=== PATIENT | female | born 1970 | race African-American/Black ===

== ENCOUNTER 2016-09-26 07:27 | Inpatient (IN) | payer OTHER ==
[2016-09-22 14:22] VITALS: BMI 23.3
[2016-09-26 08:02] LABS: EOSINOPHIL 2.5 % (0-4.5); MCH 22.4 pg (25.7-33.7); MCHC 31.6 g/dl (32.0-36.0); MEAN PLT VOLUME 7.6 fl (7.5-11.1); NEUTROPHILS 54.5 % (42.8-82.8); PLATELET COUNT 230 K/MM3 (134-434); RDW 19.4 % (11.6-15.6); WHITE BLOOD COUNT 3.4 K/mm3 (4.0-10.0)
[2016-09-26 08:15] LABS: INR 1.05 (0.82-1.09); PROTHROMBIN TIME (PATIENT) 11.6 SEC (9.98-11.88)
[2016-09-26 08:17] LABS: ACTIVATED PTT 28.5 SECONDS (26.9-34.4)
--- NOTE | 2016-09-26 19:35 | HP ---
Admitting History and Physical - Primary Care Physician PCP: Tripp Mackey - Admission History of Present Illness: pt got admitted for observation had lung biopsy and got pneumothorax after - Past Medical History Cardiovascular: Yes: HTN Pulmonary: Yes: Pulmonary Embolus (b/l PEs, recurrent) ...LMP: 09/20/16 Heme/Onc: Yes: Anemia - Smoking History Smoking history: Never smoked Have you smoked in the past 12 months: No - Alcohol/Substance Use Hx Alcohol Use: No History of Substance Use: reports: None - Social History ADL: Independent Occupation: [employer] History of Recent Travel: No Home Medications - Allergies Allergies/Adverse Reactions: Allergies Allergy/AdvReac Type Severity Reaction Status Date / Time aspirin Allergy "HIVES" Verified 09/22/16 14:22 all cillins Allergy "HIVES" Uncoded 09/22/16 14:22 - Home Medications Home Medications: Ambulatory Orders Amlodipine Besylate [Norvasc -] 5 mg PO DAILY #30 tablet 06/07/15 Hctz 25Mg/Triamterene [Dyazide 25/37.5 -] 1 cap PO DAILY capsule 06/07/15 Warfarin Sodium [Coumadin] 10 mg PO DAILY 06/11/15 Enoxaparin Sodium [Lovenox] 80 mg SQ DAILY 09/22/16 Family Disease History - Family Disease History Family Disease History: Other: Father (healthy and living), Mother ( in an accident), Brother (health and living), Sister ( of PE, cva at age 37) Physical Examination Vital Signs: Vital Signs Temperature 98.7 F 09/26/16 18:47 Pulse Rate 69 09/26/16 18:47 Respiratory Rate 20 09/26/16 18:47 Blood Pressure 123/71 09/26/16 18:47 O2 Sat by Pulse Oximetry (%) 98 09/26/16 15:52 Constitutional: Yes: No Distress HENT: Yes: Atraumatic Neck: Yes: Supple Cardiovascular: Yes: Regular Rate and Rhythm Respiratory: Yes: CTA Bilaterally Gastrointestinal: Yes: Normal Bowel Sounds Extremities: Yes: WNL Neurological: Yes: Alert, Oriented Labs: CBC, BMP 09/26/16 07:45 Imaging - Results X-ray: Report Reviewed Problem List - Problems (1) HTN (hypertension) Assessment/Plan: on meds stable Code(s): I10 - ESSENTIAL (PRIMARY) HYPERTENSION (2) Pneumothorax Assessment/Plan: will observe fu xrays in am hold loenox and coumadin Code(s): J93.9 - PNEUMOTHORAX, UNSPECIFIED Assessment/Plan Laboratory Results - last 24 hr 09/26/16 09/26/16 09/26/16 07:45 07:45 07:45 WBC 3.4 L RBC 4.68 Hgb 10.5 L Hct 33.2 MCV 71.0 L MCHC 31.6 L RDW 19.4 H Plt Count 230 MPV 7.6 Neutrophils % 54.5 Lymphocytes % 31.3 Monocytes % 10.7 H Eosinophils % 2.5 Basophils % 1.0 INR 1.05 PTT (Actin FS) 28.5 Serum , Qual Negative Active Medications Generic Name Dose Route Start Last Admin Trade Name Freq PRN Reason Stop Dose Admin Acetaminophen 650 mg 09/26/16 19:27 Tylenol - PO Q6H PRN FEVER OR PAIN Amlodipine Besylate 5 mg 09/27/16 10:00 Norvasc - PO DAILY YUVAL
[2016-09-26] MEDS: ACETAMINOPHEN 325 MG TABLET (FP) PO PRN (20:40)
[2016-09-27 08:20] LABS: BASOPHIL 0.6 % (0-2.0); EOSINOPHIL 2.5 % (0-4.5); MCH 22.5 pg (25.7-33.7); MCHC 31.9 g/dl (32.0-36.0); MEAN CELL VOLUME 70.7 fl (80-96); MEAN PLT VOLUME 7.5 fl (7.5-11.1); NEUTROPHILS 58.6 % (42.8-82.8); PLATELET COUNT 240 K/MM3 (134-434); RDW 19.5 % (11.6-15.6); WHITE BLOOD COUNT 3.4 K/mm3 (4.0-10.0)
[2016-09-27 08:49] LABS: ALBUMIN 3.4 g/dl (3.4-5.0); ANION GAP 9 (8-16); BILIRUBIN,TOTAL 0.6 mg/dL (0.2-1.0); CALCIUM 8.4 mg/dL (8.5-10.1); CO2 24 mmol/L (21-32); CREATININE 0.7 mg/dL (0.55-1.02); GLUCOSE,RANDOM 80 mg/dL (74-106); SGOT/AST 16 U/L (15-37); SGPT/ALT 31 U/L (12-78); TOT PROT 7.1 g/dl (6.4-8.2)
[2016-09-27 08:51] LABS: ALK PHOS 70 U/L (45-117)
[2016-09-27 09:18] LABS: ANISOCYTOSIS 1+; HYPOCHROMIA 2+; MICROCYTOSIS 1+; TARGET CELLS 2+; TEAR DROP CELLS RARE
[2016-09-27] MEDS: ACETAMINOPHEN 325 MG TABLET (FP) PO PRN ×2 (09:38→20:44)
[2016-09-27] MEDS: amLODIPine BESYLATE 5 MG TABLET (FP) PO SCH (09:42)
--- NOTE | 2016-09-27 12:53 | PN ---
Progress Note (short form) - Note Progress Note: PULMONARY CONSULTATION DICTATED 09/27/16 IMP TRAUMATIC R PTX RUL NODULE H/O RECURRENT PE/DVT HTN PLAN F/U CHEST X-RAY CHECK BX ANTICOAGULATION DR WELCH Problem List - Problems (1) Pneumothorax Code(s): J93.9 - PNEUMOTHORAX, UNSPECIFIED (2) DVT (deep venous thrombosis) Code(s): I82.409 - ACUTE EMBOLISM AND THOMBOS UNSP DEEP VN UNSP LOWER EXTREMITY Qualifiers: Laterality: left (3) Fibroids Code(s): D25.9 - LEIOMYOMA OF UTERUS, UNSPECIFIED (4) HTN (hypertension) Code(s): I10 - ESSENTIAL (PRIMARY) HYPERTENSION (5) Pulmonary embolism Code(s): I26.99 - OTHER PULMONARY EMBOLISM WITHOUT ACUTE COR PULMONALE (6) Lung nodule, solitary Code(s): R91.1 - SOLITARY PULMONARY NODULE
--- NOTE | 2016-09-27 14:24 | CONS ---
DATE OF CONSULTATION: 09/27/2016 REFERRING PHYSICIAN: Amelia Mackey MD The patient is a 46-year-old black female known to me from previous hospitalization in 2015 with a history of pulmonary embolism x2, DVT, hypertension, currently maintained on Coumadin, recently noted to have a right upper lobe nodule. The patient apparently had a PET scan which she states did not show significant SUV uptake. Apparently, she went for a followup CAT scan on August 15, 2016, which revealed no change in right upper lobe nodule. The patient underwent a CT needle-aspiration biopsy on September 26. The patient tolerated the procedure well. A postop chest x-ray revealed a small right upper lobe pneumothorax. She was admitted for further observation. She denies any shortness of breath. Denies hemoptysis. Does have some chest pain secondary to the procedure. Denies any chronic cough, wheezing. Denies any history of tobacco use. There is no history of occupational exposure to chemicals or fumes. PAST MEDICAL HISTORY: Again includes hypertension, pulmonary embolism x2, DVT. REVIEW OF SYSTEMS: No orthopnea. No PND. No cough. No hemoptysis. Positive chest pain secondary to recent biopsy. No fevers. No chills. No weight loss. No night sweats. CURRENT MEDICATIONS: Include Norvasc and Tylenol. PHYSICAL EXAMINATION: General: The patient is a well-developed, well-nourished female, awake, alert, in no acute distress. Vital signs: She is afebrile; blood pressure is 136/73; respiratory rate is 18 ; O2 saturation is 99% on room air. HEENT: Exam is normocephalic, atraumatic. Neck: Supple. Heart: Regular S1 and S2. Chest: Clear. Abdomen: Soft. Bowel sounds positive. Extremities: No sign of edema. Chest x-ray from early this morning reveals a small right upper lobe right pneumothorax of 26 mm. IMPRESSION: 1. Right upper lobe nodule, etiology to be determined. 2. Right upper lobe traumatic pneumothorax. 3. Hypertension. PLAN: Follow up the chest x-ray. Check results of pathology. Further recommendations pending results of chest x-ray, and biopsy. SAM WELCH M.D. [id number] MTDD
--- NOTE | 2016-09-27 19:38 | PN ---
Progress Note, Physician - Current Medication List Current Medications: Active Medications Acetaminophen (Tylenol -) 650 mg PO Q6H PRN PRN Reason: FEVER OR PAIN Last Admin: 09/27/16 09:38 Dose: 650 mg Amlodipine Besylate (Norvasc -) 5 mg PO DAILY YUVAL Last Admin: 09/27/16 09:42 Dose: Not Given - Objective Vital Signs: Vital Signs Temperature 98.2 F 09/27/16 14:00 Pulse Rate 73 09/27/16 14:00 Respiratory Rate 20 09/27/16 14:00 Blood Pressure 126/74 09/27/16 14:00 O2 Sat by Pulse Oximetry (%) 99 09/27/16 05:27 Constitutional: Yes: No Distress HENT: Yes: Atraumatic Neck: Yes: Supple Cardiovascular: Yes: Regular Rate and Rhythm Respiratory: Yes: CTA Bilaterally Gastrointestinal: Yes: Normal Bowel Sounds Extremities: Yes: WNL Neurological: Yes: Alert, Oriented Labs: CBC, BMP 09/27/16 07:00 09/27/16 07:00 INR, PTT INR 1.05 (0.82-1.09) 09/26/16 07:45 Problem List - Problems (1) HTN (hypertension) Code(s): I10 - ESSENTIAL (PRIMARY) HYPERTENSION (2) Pneumothorax Code(s): J93.9 - PNEUMOTHORAX, UNSPECIFIED Assessment/Plan 1.PNEUMOTHORAX POST BIOPSY OF PULMONARY NODULE CXR IMPROVED WILL REPEAT IN AM CLINICALLY STABLE NEED TO KNOW FROM HEME WHEN TO START LOVENOX PT HAS A H/O OF PE
--- NOTE | 2016-09-27 20:25 | PN ---
Progress Note (short form) - Note Progress Note: Patient seen and examined Patient well known to our service. Comes in s/p lung biopsy with pneu,othorax. HAd RUL lung nodule mildly PET+ Denies any complaints. No SOB PMH fibroids menorrhagia worsened on NOACs h/o DVT/PE provoked by fibroids ??, s/p ivc filter, on coumadin Last Vital Signs Temp Pulse Resp BP Pulse Ox 98.1 F 73 18 122/71 97 09/27/16 22:00 09/27/16 22:00 09/27/16 22:00 09/27/16 22:00 09/27/16 22:00 Oropharynx: No thrush, No mucositis Cor: RSR, No murmurs, No gallops Lungs: Clear to P&A Abd: Soft, Normal bowel sounds, No organomegaly Ext:No significant edema Skin: No rashes, Integument intact Abnormal Lab Results 09/27/16 09/27/16 07:00 07:00 WBC 3.4 L MCV 70.7 L MCHC 31.9 L RDW 19.5 H Monocytes % 10.3 H Chloride 111 H Calcium 8.4 L Current Medications Acetaminophen (Tylenol -) 650 mg PO Q6H PRN PRN Reason: FEVER OR PAIN Last Admin: 09/27/16 20:44 Dose: 650 mg Amlodipine Besylate (Norvasc -) 5 mg PO DAILY YUVAL Last Admin: 09/27/16 09:42 Dose: Not Given A/P 46 y/opatient with h/o DVT/PE /fibroid uterus, had menorrhagia oion NOACs, s/p ivc filter. Has beenon [facility] coumadin as patient continues to have fibroids , h/o Uterine artery emboliztion on past.Will repeat p[elvic U?S Thrombophilia w/u neg. except protwein C/S as patientis on coumadin Lung nodule -- RUL --being followed since 04/21. PET positive mildly Hence had lung bx Pneumothorax s/p lung biopsy CXR --very little change To resume lovenox when cleared by IR discussed with Dr. Reese and primary
--- NOTE | 2016-09-28 07:52 | PATH ---
Surgical Pathology Report Patient Name: CHULA HORTON [facility]. Rec. #: [id number] /Age/Gender: 1970 (Age: 46) / F Account: [id number] Location: [address] [place] [address]/[facility] Taken: 09/26/2016 Received: 09/26/2016 Reported: 09/28/2016 Physicians: Blane Smith M.D. Smitha Mellacheruvu, M.D. Specimen(s) Received LUNG BIOPSY Clinical History 46-year-old female with right lower lung lesion Rule out primary lung neoplasm versus inflammatory process Patient had history of PE and ?? wedge infiltrate Final Diagnosis LUNG, RIGHT LOWER LOBE, GUIDED CORE BIOPSY: BENIGN BRONCHOPULMONARY TISSUE WITH ACTIVE AND CHRONIC INFLAMMATION AND MILD NON-SPECIFIC FIBROSIS. NO MALIGNANCY IDENTIFIED AND EXAMINED MATERIAL. NO GRANULOMAS IDENTIFIED. Comment: Special stains for acid-fast and fungal organisms are pending; results will be reported in an addendum. The case was discussed with Dr. Reese on 09/27/16. Electronically Signed Avel Cardoso M.D. Addendum Reported: 09/28/2016 Addendum Diagnosis No acid fast bacilli are identified with AFB stain. No fungal organisms are identified with GMS stain. Avel Cardoso M.D. Gross Description Received in formalin, labeled "right lung biopsy" is a 0.5 x 0.3 x 0.1 cm aggregate of wade soft tissue fragments. The formalin is filtered and the specimen is entirely submitted in one cassette. /09/26/201609/26/2016
[2016-09-28] MEDS: amLODIPine BESYLATE 5 MG TABLET (FP) PO SCH (09:38)
--- NOTE | 2016-09-28 12:15 | PN ---
Progress Note (short form) - Note Progress Note: PULMONARY Denies shortness of breath or chest pain. CXR this AM showing slight improvement in pneumothorax. Pathology with benign tissue. Last Vital Signs Temp Pulse Resp BP Pulse Ox 98.6 F 67 20 114/65 98 09/28/16 09:33 09/28/16 09:33 09/28/16 09:33 09/28/16 09:33 09/28/16 05:09 Gen: NAD at rest Heart: RRR Lung: decreased breath sounds on right Abd: soft, nontender Ext: no edema CBC, BMP 09/27/16 07:00 09/27/16 07:00 Active Medications Acetaminophen (Tylenol -) 650 mg PO Q6H PRN PRN Reason: FEVER OR PAIN Last Admin: 09/27/16 20:44 Dose: 650 mg Amlodipine Besylate (Norvasc -) 5 mg PO DAILY YUVAL Last Admin: 09/28/16 09:38 Dose: 5 mg A/P Lung Nodule s/p Needle biopsy with resultant right pneumothorax h/o PE/DVT Fibroids - can restart anticoagulation and be discharged home from pulmonary standpoint as pt reliable - pt given Rx for CXR tomorrow and next week - instructed that if she develops any chest pain or shortness of breath, she must come back to ER - outpt f/u of lung nodule
--- NOTE | 2016-09-28 13:43 | PN ---
Progress Note, Physician - Current Medication List Current Medications: Active Medications Acetaminophen (Tylenol -) 650 mg PO Q6H PRN PRN Reason: FEVER OR PAIN Last Admin: 09/27/16 20:44 Dose: 650 mg Amlodipine Besylate (Norvasc -) 5 mg PO DAILY YUVAL Last Admin: 09/28/16 09:38 Dose: 5 mg - Objective Vital Signs: Vital Signs Temperature 98.6 F 09/28/16 09:33 Pulse Rate 67 09/28/16 09:33 Respiratory Rate 20 09/28/16 09:33 Blood Pressure 114/65 09/28/16 09:33 O2 Sat by Pulse Oximetry (%) 98 09/28/16 05:09 Labs: CBC, BMP 09/27/16 07:00 09/27/16 07:00 INR, PTT INR 1.05 (0.82-1.09) 09/26/16 07:45 Problem List - Problems (1) HTN (hypertension) Code(s): I10 - ESSENTIAL (PRIMARY) HYPERTENSION (2) Pneumothorax Code(s): J93.9 - PNEUMOTHORAX, UNSPECIFIED Assessment/Plan 1.PNEUMOTHORAX POST BIOPSY OF PULMONARY NODULE CXR IMPROVED WILL REPEAT IN AM CLINICALLY STABLE NEED TO KNOW FROM HEME WHEN TO START LOVENOX PT HAS A H/O OF PE need to know the dose of lovenox to start
[2016-09-28] MEDS ORDERED: ENOXAPARIN NA (PORCINE) 60 MG/0.6 ML DISP.SYRIN SQ ONE (16:30)
--- NOTE | 2016-09-28 17:34 | PN ---
Progress Note (short form) - Note Progress Note: Patient seen and examined Denies any complaints. No SOB Last Vital Signs Temp Pulse Resp BP Pulse Ox 98.1 F 73 18 122/71 97 09/27/16 22:00 09/27/16 22:00 09/27/16 22:00 09/27/16 22:00 09/27/16 22:00 HEENT: nl Oropharynx: No thrush, No mucositis Cor: RSR, No murmurs, No gallops Lungs: decreased breath sounds rt. lung Abd: Soft, Normal bowel sounds, No organomegaly Ext:No significant edema Abnormal Lab Results 09/27/16 09/27/16 07:00 07:00 WBC 3.4 L MCV 70.7 L MCHC 31.9 L RDW 19.5 H Monocytes % 10.3 H Chloride 111 H Calcium 8.4 L Current Medications Acetaminophen (Tylenol -) 650 mg PO Q6H PRN PRN Reason: FEVER OR PAIN Last Admin: 09/27/16 20:44 Dose: 650 mg Amlodipine Besylate (Norvasc -) 5 mg PO DAILY [facility] Last Admin: 09/27/16 09:42 Dose: Not Given A/P 46 y/opatient with h/o DVT/PE /fibroid uterus Pneumothorax s/p lung biopsy CXR --very little change To resume lovenox bridge to coumadin per PMD pathology negative discussed with Dr. salinas
--- NOTE | 2016-09-28 17:41 | DS ---
Physical Examination Vital Signs: Vital Signs Temperature 98.2 F 09/28/16 14:20 Pulse Rate 72 09/28/16 14:20 Respiratory Rate 20 09/28/16 14:20 Blood Pressure 124/60 09/28/16 14:20 O2 Sat by Pulse Oximetry (%) 98 09/28/16 05:09 Constitutional: Yes: No Distress HENT: Yes: Atraumatic Neck: Yes: Supple Cardiovascular: Yes: Regular Rate and Rhythm Respiratory: Yes: CTA Bilaterally Gastrointestinal: Yes: Normal Bowel Sounds Extremities: Yes: WNL Neurological: Yes: Alert, Oriented Labs: CBC, BMP 09/27/16 07:00 09/27/16 07:00 Discharge Summary Reason For Visit: PNEUMOTHORAX AFTER BIOPSY Current Active Problems Lung nodule, solitary (Acute) Pneumothorax (Acute) - Instructions Diet, Activity, Other Instructions: IF YOU DEVELOP SIGNIFICANT HEMOPTYSIS WHICH IS COUGHING UP BLOOD, SHORTNESS OF BREATH, CHEST PAIN, OR PERSISTENT COUGHING - GO TO EMERGENCY DEPARTMENT. FOLLOW UP WITH DR BAUM FOR BIOPSY RESULTS. see your pmd sunday for inr check start your coumadin today along with lovenox follow up cxr x2 Referrals: Tripp Mackey MD [Staff Physician] - - Home Medications Comprehensive Discharge Medication List: Ambulatory Orders Amlodipine Besylate [Norvasc -] 5 mg PO DAILY #30 tablet 06/07/15 Warfarin Sodium [Coumadin] 10 mg PO DAILY 06/11/15 Enoxaparin Sodium [Lovenox] 80 mg SQ DAILY 09/22/16 Enoxaparin Sodium [Lovenox] 70 mg SQ DAILY #7 syringe 09/28/16 dc home on coumadin and lovenox fu ia next week sunday not clear to go back to work...d/w patient
[2016-09-28 18:32] VITALS: BP 124/75; PULSE 74; TEMP 98.4
== END 2016-09-28 18:50 | disposition home or self-care (01) | DRG 201 ==
LOC: JRADIR 07:27 → J5S 17:29 → INTOOBSV 17:29 → OBSVTOIN 17:29 → J5S 18:00
PROVIDERS: ADMIT Internal Medicine; ATTEND Internal Medicine
PROC: 0BBF3ZX Excision of Right Lower Lung Lobe, Percutaneous Approach, Diagnostic (ICD-10-PCS; principal; 2016-09-26)
DX: J95.811 Postprocedural pneumothorax (principal); Y84.8 Other medical procedures as the cause of abnormal reaction of the patient, or of later complication, without mention of misadventure at the time of the procedure; Z86.718 Personal history of other venous thrombosis and embolism; R91.1 Solitary pulmonary nodule; Z86.711 Personal history of pulmonary embolism; D25.9 Leiomyoma of uterus, unspecified; I10 Essential (primary) hypertension; Z79.01 Long term (current) use of anticoagulants
CPT/HCPCS: 32405; 36415; 71010-TC; 71020-TC; 77012-TC; 80053; 84703; 85025; 85610; 85730; 88305-TC

== ENCOUNTER 2016-10-02 09:36 | Inpatient (IN) | payer OTHER ==
[2016-10-02 11:40] LABS: INR 1.43 (0.82-1.09); PROTHROMBIN TIME (PATIENT) 15.8 SEC (9.98-11.88)
[2016-10-02 12:40] VITALS: BMI 23.3
[2016-10-02] MEDS ORDERED: HYDROmorphone HCL CARPU-JECT 2 MG/1 ML DISP.SYRIN ONE (15:37)
[2016-10-02] MEDS: HYDROmorphone HCL CARPU-JECT 1 MG/1 ML DISP.SYRIN IVPB PRN ×2 (15:40→15:45)
[2016-10-02] MEDS ORDERED: ONDANSETRON 4 MG/2 ML VIAL ONE (15:47)
[2016-10-02] MEDS ORDERED: PROMETHAZINE HCL 25 MG/1 ML VIAL ONE (17:02)
[2016-10-02] MEDS ORDERED: ONDANSETRON 4 MG/2 ML VIAL IVPB PRN ×2 (17:22→21:36)
[2016-10-02] MEDS ORDERED: PROMETHAZINE HCL 25 MG/1 ML VIAL IVPB ONE (17:30)
[2016-10-02] MEDS: SODIUM CHLORIDE 1,000 ML IV SCH ×2 (18:00→18:41)
[2016-10-02] MEDS ORDERED: HYDROmorphone HCL CARPU-JECT 1 MG/1 ML DISP.SYRIN IVPB ONE (19:45)
--- NOTE | 2016-10-02 20:30 | HP ---
Admitting History and Physical - Primary Care Physician PCP: Tripp Mackey - Admission History of Present Illness: admitted for pneumothorax...fu cxr same got pig tail catheter in chest - Past Medical History Cardiovascular: Yes: HTN Pulmonary: Yes: Pulmonary Embolus (b/l PEs, recurrent) ...LMP: 09/20/16 Heme/Onc: Yes: Anemia - Smoking History Smoking history: Never smoked Have you smoked in the past 12 months: No - Alcohol/Substance Use Hx Alcohol Use: No History of Substance Use: reports: None - Social History ADL: Independent Occupation: [employer] History of Recent Travel: No Home Medications - Allergies Allergies/Adverse Reactions: Allergies Allergy/AdvReac Type Severity Reaction Status Date / Time aspirin Allergy "HIVES" Verified 10/02/16 12:28 all cillins Allergy "HIVES" Uncoded 10/02/16 12:28 - Home Medications Home Medications: Ambulatory Orders Amlodipine Besylate [Norvasc -] 5 mg PO DAILY #30 tablet 06/07/15 Warfarin Sodium [Coumadin] 10 mg PO DAILY 06/11/15 Enoxaparin Sodium [Lovenox] 80 mg SQ DAILY 09/22/16 Enoxaparin Sodium [Lovenox] 70 mg SQ DAILY #7 syringe 09/28/16 Triamterene/Hydrochlorothiazid [Triamterene-Hctz 37.5-25 mg Cp] 1 each PO DAILY 10/02/16 Family Disease History - Family Disease History Family Disease History: Other: Father (healthy and living), Mother ( in an accident), Brother (health and living), Sister ( of PE, cva at age 37) Physical Examination Vital Signs: Vital Signs Temperature 98.0 F 10/02/16 18:00 Pulse Rate 61 10/02/16 18:00 Respiratory Rate 13 10/02/16 18:00 Blood Pressure 115/69 10/02/16 18:00 O2 Sat by Pulse Oximetry (%) 100 10/02/16 18:00 Constitutional: Yes: No Distress HENT: Yes: Atraumatic Neck: Yes: Supple Cardiovascular: Yes: Regular Rate and Rhythm Respiratory: Yes: Rhonchi Gastrointestinal: Yes: Normal Bowel Sounds Extremities: Yes: WNL Problem List - Problems (1) Fibroids Code(s): D25.9 - LEIOMYOMA OF UTERUS, UNSPECIFIED (2) HTN (hypertension) Assessment/Plan: stable on meds Code(s): I10 - ESSENTIAL (PRIMARY) HYPERTENSION (3) Lung nodule, solitary Assessment/Plan: s/p biopsy... Code(s): R91.1 - SOLITARY PULMONARY NODULE (4) Pneumothorax Assessment/Plan: ct in place will fu xray Code(s): J93.9 - PNEUMOTHORAX, UNSPECIFIED (5) Pulmonary embolism Assessment/Plan: start lovenox from tomorrow Code(s): I26.99 - OTHER PULMONARY EMBOLISM WITHOUT ACUTE COR PULMONALE Assessment/Plan Laboratory Tests 10/02/16 11:10 INR 1.43 H D
[2016-10-02] MEDS ORDERED: HYDROmorphone HCL CARPU-JECT 1 MG/1 ML DISP.SYRIN IVPB PRN (21:36)
[2016-10-03 07:52] LABS: BASOPHIL 0.9 % (0-2.0); EOSINOPHIL 1.1 % (0-4.5); MCH 22.5 pg (25.7-33.7); MCHC 32.2 g/dl (32.0-36.0); MEAN CELL VOLUME 69.9 fl (80-96); MEAN PLT VOLUME 7.8 fl (7.5-11.1); PLATELET COUNT 211 K/MM3 (134-434); RDW 19.4 % (11.6-15.6); WHITE BLOOD COUNT 4.1 K/mm3 (4.0-10.0)
[2016-10-03 08:17] LABS: INR 1.92 (0.82-1.09); PROTHROMBIN TIME (PATIENT) 21.4 SEC (9.98-11.88)
[2016-10-03 09:07] LABS: ALBUMIN 3.3 g/dl (3.4-5.0); ANION GAP 11 (8-16); CALCIUM 8.4 mg/dL (8.5-10.1); CO2 21 mmol/L (21-32); GLUCOSE,RANDOM 80 mg/dL (74-106)
[2016-10-03 09:11] LABS: ALK PHOS 63 U/L (45-117); BILIRUBIN,TOTAL 0.4 mg/dL (0.2-1.0); CREATININE 0.7 mg/dL (0.55-1.02); SGOT/AST 17 U/L (15-37); SGPT/ALT 24 U/L (12-78); TOT PROT 6.8 g/dl (6.4-8.2)
[2016-10-03] MEDS: ENOXAPARIN NA (PORCINE) 80 MG/0.8 ML DISP.SYRIN SQ SCH (09:12)
[2016-10-03] MEDS: amLODIPine BESYLATE 5 MG TABLET (FP) PO SCH (09:13)
--- NOTE | 2016-10-03 14:41 | CON.PULM ---
Consult Consult Specialty:: PULMONARY Reason for Consultation:: PTX - History of Present Illness Chief Complaint: SOB/PTX History of Present Illness: 46 B FEMALE H/O VTE/PE TWICE NOW WITH IVC FILTER AND ON WARFARIN HAD R LUNG LESION S/P TTNA WITH SUBSEQUENT PTX WHICH INITIALLY DID NOT REQUIRE A CT. PT NOTED INCREASE IN SOB AND REPEAT CXR YESTERDAY REVEALED PTX REQUIRING PIG TAIL CATHETER. NOW CT IN PLACE AND PTX IS RESOLVED - History Source History Provided By: Patient, Medical Record Limitations to Obtaining History: No Limitations - Past Medical History NUMEROLOGIST: No: Alzheimer's Cardio/Vascular: Yes: HTN Pulmonary: Yes: Pulmonary Embolus (b/l PEs, recurrent) Gastrointestinal: No: Ascites Hepatobiliary: No: Cirrhosis Renal/: No: Renal Failure ...LMP: 09/20/16 Heme/Onc: Yes: Other (RIGHT LUNG LESION W EQUIVOCAL RESULTS ON PET) Infectious Disease: No: AIDS Psych: No: Addictions Musculoskeletal: No: Bursitis Rheumatology: No: Fibromyalgia Additional Medical History: Prior PE in 2008 following abdominal myomectomy. - Alcohol/Substance Use Hx Alcohol Use: No History of Substance Use: reports: None - Smoking History Smoking history: Never smoked Have you smoked in the past 12 months: No - Social History ADL: Independent Occupation: HAND INSPECTOR History of Recent Travel: No Home Medications - Allergies Allergies/Adverse Reactions: Allergies Allergy/AdvReac Type Severity Reaction Status Date / Time aspirin Allergy "HIVES" Verified 10/02/16 12:28 all cillins Allergy "HIVES" Uncoded 10/02/16 12:28 - Home Medications Home Medications: Ambulatory Orders Amlodipine Besylate [Norvasc -] 5 mg PO DAILY #30 tablet 06/07/15 Warfarin Sodium [Coumadin] 10 mg PO DAILY 06/11/15 Enoxaparin Sodium [Lovenox] 80 mg SQ DAILY 09/22/16 Enoxaparin Sodium [Lovenox] 70 mg SQ DAILY #7 syringe 09/28/16 Triamterene/Hydrochlorothiazid [Triamterene-Hctz 37.5-25 mg Cp] 1 each PO DAILY 10/02/16 Family Disease History - Family Disease History Family Disease History: Other: Father (healthy and living), Mother ( in an accident), Brother (health and living), Sister ( of PE, cva at age 37) Review of Systems - Review of Systems Constitutional: denies: Fever Eyes: denies: Blurred Vision HENT: denies: Difficult Swallowing Neck: denies: Decreased ROM Cardiovascular: denies: Chest Pain Respiratory: reports: SOB on Exertion. denies: Cough, SOB Gastrointestinal: denies: Abdominal Pain Genitourinary: denies: Burning Breasts: reports: No Symptoms Reported Physical Exam Vital Sings: Vital Signs Temperature 99.5 F 10/03/16 09:00 Pulse Rate 74 10/03/16 09:00 Respiratory Rate 20 10/03/16 09:00 Blood Pressure 130/72 10/03/16 09:00 O2 Sat by Pulse Oximetry (%) 96 10/03/16 09:00 Constitutional: Yes: Calm Eyes: Yes: EOM Intact HENT: Yes: Normocephalic Neck: Yes: Trachea Midline Cardiovascular: Yes: Regular Rate and Rhythm Respiratory: Yes: CTA Bilaterally Gastrointestinal: Yes: Abdomen, Obese Extremities: Yes: WNL Edema: No Neurological: Yes: WNL Labs: CBC, BMP 10/03/16 06:45 10/03/16 06:45 Imaging - Results Chest X-ray: Image Reviewed Cat Scan: Image Reviewed Problem List - Problems (1) HTN (hypertension) Code(s): I10 - ESSENTIAL (PRIMARY) HYPERTENSION (2) Lung nodule, solitary Code(s): R91.1 - SOLITARY PULMONARY NODULE (3) Pneumothorax after biopsy Code(s): J95.811 - POSTPROCEDURAL PNEUMOTHORAX Assessment/Plan RESOLVED PTX S/P PIGTAIL CATHETER PLAVEMENT CHECK CXR AM HOPE TO HAVE TUBE REMOVED MELLISA WATTERS MD
--- NOTE | 2016-10-03 17:10 | PN ---
Progress Note, Physician - Current Medication List Current Medications: Active Medications Amlodipine Besylate (Norvasc -) 5 mg PO DAILY REPLACED BY [facility] Last Admin: 10/03/16 09:13 Dose: 5 mg Enoxaparin Sodium (Lovenox -) 70 mg SQ DAILY REPLACED BY [facility] Last Admin: 10/03/16 09:12 Dose: 70 mg Hydromorphone HCl (Dilaudid Injection -) 1 mg IVPB Q3H PRN PRN Reason: PAIN Last Admin: 10/03/16 08:21 Dose: 1 mg Sodium Chloride (Normal Saline -) 1,000 mls @ 100 mls/hr IV ASDIR REPLACED BY [facility] Last Admin: 10/02/16 18:41 Dose: 100 mls/hr Ondansetron HCl (Zofran Injection) 4 mg IVPB Q4H PRN PRN Reason: NAUSEA AND/OR VOMITING - Objective Vital Signs: Vital Signs Temperature 98.6 F 10/03/16 15:57 Pulse Rate 81 10/03/16 15:57 Respiratory Rate 18 10/03/16 15:57 Blood Pressure 135/81 10/03/16 15:57 O2 Sat by Pulse Oximetry (%) 96 10/03/16 09:00 Constitutional: Yes: No Distress HENT: Yes: Atraumatic Neck: Yes: Supple Cardiovascular: Yes: Regular Rate and Rhythm Respiratory: Yes: CTA Bilaterally Gastrointestinal: Yes: Normal Bowel Sounds Extremities: Yes: WNL Neurological: Yes: Alert, Oriented Labs: CBC, BMP 10/03/16 06:45 10/03/16 06:45 INR, PTT INR 1.92 (0.82-1.09) H D 10/03/16 06:45 Problem List - Problems (1) Fibroids Code(s): D25.9 - LEIOMYOMA OF UTERUS, UNSPECIFIED (2) HTN (hypertension) Code(s): I10 - ESSENTIAL (PRIMARY) HYPERTENSION (3) Lung nodule, solitary Code(s): R91.1 - SOLITARY PULMONARY NODULE (4) Pneumothorax Code(s): J93.9 - PNEUMOTHORAX, UNSPECIFIED (5) Pulmonary embolism Code(s): I26.99 - OTHER PULMONARY EMBOLISM WITHOUT ACUTE COR PULMONALE Assessment/Plan Laboratory Tests 10/02/16 11:10 INR 1.43 H D Laboratory Tests 10/02/16 10/03/16 10/03/16 11:10 06:45 06:45 WBC 4.1 RBC 4.99 Hgb 11.2 Hct 34.8 MCV 69.9 L MCHC 32.2 RDW 19.4 H Plt Count 211 MPV 7.8 Neutrophils % 62.0 Lymphocytes % 24.4 Monocytes % 11.6 H Eosinophils % 1.1 Basophils % 0.9 INR 1.43 H D 1.92 H D Sodium Potassium Chloride Carbon Dioxide Anion Gap BUN Creatinine Creat Clearance w eGFR Random Glucose Calcium Total Bilirubin AST ALT Alkaline Phosphatase Total Protein Albumin 10/03/16 06:45 WBC RBC Hgb Hct MCV MCHC RDW Plt Count MPV Neutrophils % Lymphocytes % Monocytes % Eosinophils % Basophils % INR Sodium 143 Potassium 4.4 Chloride 111 H Carbon Dioxide 21 Anion Gap 11 BUN 11 D Creatinine 0.7 Creat Clearance w eGFR > 60 Random Glucose 80 Calcium 8.4 L Total Bilirubin 0.4 D AST 17 ALT 24 D Alkaline Phosphatase 63 Total Protein 6.8 Albumin 3.3 L 1.pig tail catheter removed cxr no pneumo if clinically stable dc in am repeat cxr in am
[2016-10-04] MEDS: amLODIPine BESYLATE 5 MG TABLET (FP) PO SCH (09:36)
[2016-10-04] MEDS: ENOXAPARIN NA (PORCINE) 80 MG/0.8 ML DISP.SYRIN SQ SCH (09:36)
--- NOTE | 2016-10-04 12:39 | PN ---
Progress Note (short form) - Note Progress Note: PULMONARY FEELS FINE NOT SOB 99% SPO2 ON R/A VSS ANICTERIC CLEAR LUNG LEONARD S1S2 BS+ NO EDEMA LABS/MEDS/NOTES/IMAGING REVIEWED RESOLVED IATROGENIC PTX NOW S/P PIGTAIL REMOVAL AGREE WITH CONTINUING OBSERVATION AN OUTPATIENT. Omer WATTERS MD Problem List - Problems (1) HTN (hypertension) Code(s): I10 - ESSENTIAL (PRIMARY) HYPERTENSION (2) Lung nodule, solitary Code(s): R91.1 - SOLITARY PULMONARY NODULE (3) Pneumothorax after biopsy Code(s): J95.811 - POSTPROCEDURAL PNEUMOTHORAX
[2016-10-04 15:09] VITALS: BP 136/90; PULSE 97; TEMP 98.8
[2016-10-04] MEDS: SODIUM CHLORIDE 1,000 ML IV SCH (17:36)
--- NOTE | 2016-10-04 18:19 | DS ---
Physical Examination Vital Signs: Vital Signs Temperature 98.8 F 10/04/16 15:08 Pulse Rate 97 H 10/04/16 15:08 Respiratory Rate 17 10/04/16 15:08 Blood Pressure 136/90 10/04/16 15:08 O2 Sat by Pulse Oximetry (%) 99 10/04/16 09:00 Constitutional: Yes: No Distress HENT: Yes: Atraumatic Neck: Yes: Supple Cardiovascular: Yes: Regular Rate and Rhythm Respiratory: Yes: CTA Bilaterally Gastrointestinal: Yes: Normal Bowel Sounds Extremities: Yes: WNL Neurological: Yes: Alert, Oriented Labs: CBC, BMP 10/03/16 06:45 10/03/16 06:45 Discharge Summary Reason For Visit: PNEUMOTHORAX Current Active Problems Pneumothorax after biopsy (Acute) - Home Medications Comprehensive Discharge Medication List: Ambulatory Orders Amlodipine Besylate [Norvasc -] 5 mg PO DAILY #30 tablet 06/07/15 Warfarin Sodium [Coumadin] 10 mg PO DAILY 06/11/15 Enoxaparin Sodium [Lovenox] 70 mg SQ DAILY #7 syringe 09/28/16 Triamterene/Hydrochlorothiazid [Triamterene-Hctz 37.5-25 mg Cp] 1 each PO DAILY 10/02/16 dc home fu pmd 2-3 days
== END 2016-10-04 18:37 | disposition home or self-care (01) | DRG 201 ==
LOC: JASUSAT 09:36 → J8W 09:36 → JRAD 09:36 → J8W 18:29 → JASUSAT 10-03 19:07
PROVIDERS: ADMIT Internal Medicine; ATTEND Internal Medicine
PROC: 0W9930Z Drainage of Right Pleural Cavity with Drainage Device, Percutaneous Approach (ICD-10-PCS; principal; 2016-10-02)
PROC: 0BPQX0Z Removal of Drainage Device from Pleura, External Approach (ICD-10-PCS; 2016-10-03)
DX: J95.811 Postprocedural pneumothorax (principal); Y84.8 Other medical procedures as the cause of abnormal reaction of the patient, or of later complication, without mention of misadventure at the time of the procedure; I10 Essential (primary) hypertension; R91.1 Solitary pulmonary nodule; D25.9 Leiomyoma of uterus, unspecified
CPT/HCPCS: 32557; 36415; 71010-TC; 71020-TC; 77012-TC; 80053; 85025; 85610; C1769

== ENCOUNTER 2017-05-22 17:02 | Emergency (ER) | payer OTHER ==
[2017-05-22 17:08] VITALS: BP 144/93; PULSE 95; TEMP 98.2; BMI 23.3
--- NOTE | 2017-05-22 17:55 | PDOC ---
History of Present Illness - General Chief Complaint: Poison [place],Poison Oleg Exposure Stated Complaint: POISON OLEG Time Seen by Provider: 05/22/17 17:17 History Source: Patient - History of Present Illness Timing/Duration: reports: other Location: reports: extremities, torso Past History - Past Medical History Allergies/Adverse Reactions: Allergies Allergy/AdvReac Type Severity Reaction Status Date / Time aspirin Allergy "HIVES" Verified 05/22/17 17:03 all cillins Allergy "HIVES" Uncoded 05/22/17 17:03 Home Medications: Ambulatory Orders Amlodipine Besylate [Norvasc -] 5 mg PO DAILY #30 tablet 06/07/15 Warfarin Sodium [Coumadin] 10 mg PO DAILY 06/11/15 Betamethasone Dipr 0.05% Oint [Diprolene] 50 gm NR BID #1 tube 05/22/17 Anemia: Yes HTN: Yes Hypercholesterolemia: Yes - Surgical History Cardiac Surgery: Yes (IVC filter) - Immunization History Immunization Up to Date: Yes - Suicide/Smoking/Psychosocial Hx Smoking History: Never smoked Have you smoked in the past 12 months: No Hx Alcohol Use: No Drug/Substance Use Hx: No Substance Use Type: None Hx Substance Use Treatment: No Review of Systems - Review of Systems Constitutional: No: Chills, Fever Integumentary: Yes: Erythema, Pruritus, Rash *Physical Exam - Vital Signs Last Vital Signs Temp Pulse Resp BP Pulse Ox 98.2 F 95 H 18 144/93 99 05/22/17 17:02 05/22/17 17:02 05/22/17 17:02 05/22/17 17:02 05/22/17 17:02 - Physical Exam General Appearance: Yes: Appropriately Dressed. 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 Was evaluated by her PMD and started on oral prednisone which she has since completed, but states symptoms continue. No groin or face involvement. Denies any fever or chills See exam Poison Oleg dermatitis Completed oral pred w/ no relief No face/groin involvement -Dc w/ high potency steroids, non-sedating antihistamine OTC as needed, f/u as needed *DC/Admit/Observation/Transfer Diagnosis at time of Disposition: Poison oleg dermatitis - Discharge Dispostion Disposition: HOME Condition at time of disposition: Good - Prescriptions Prescriptions: Betamethasone Dipr 0.05% Oint [Diprolene] 50 gm NR BID #1 tube - Patient Instructions Printed Discharge Instructions: DI for Poison Oleg Allergy Additional Instructions: Apply cream as directed for 2 weeks. You can also take claritin or zyrtec as needed for itching If symptoms persist, follow-up with your PMD
== END 2017-05-22 17:52 | disposition home or self-care (01) ==
LOC: JERFT 17:02
DX: L23.7 Allergic contact dermatitis due to plants, except food (principal); I10 Essential (primary) hypertension; E78.00 Pure hypercholesterolemia, unspecified; D64.9 Anemia, unspecified
CPT/HCPCS: 99281-25

== ENCOUNTER 2023-01-30 11:55 | Emergency (ER) | payer OTHER ==
[2023-01-30 12:00] VITALS: BP 166/82; PULSE 83; RESP 18; TEMP 97.6; BMI 24.2
== END 2023-01-30 13:55 | disposition home or self-care (01) ==
LOC: JERFT 11:55
DX: M25.512 Pain in left shoulder (principal); W18.2XXA Fall in (into) shower or empty bathtub, initial encounter; Y93.F1 Activity, caregiving, bathing; Y92.002 Bathroom of unspecified non-institutional (private) residence as the place of occurrence of the external cause
CPT/HCPCS: 73000-TC-LT-FY; 73030-TC-LT-FY; 99283-25